=== PATIENT | female | born 1975 | race Caucasian/White ===

== ENCOUNTER 2016-06-02 21:53 | Emergency (ER) | payer OTHER ==
[~2016-06-02] VITALS: Ht 157.5 cm; Wt 65.8 kg
[~2016-06-02 21:53] MED LIST: FERR325E14 PO; PREN-385 PO
[2016-06-02 22:08] VITALS: BP 141/76
--- NOTE | 2016-06-02 23:15 | NUR ---
PT TAKEN TO BED 3
--- NOTE | 2016-06-02 23:26 | NUR ---
40Y/F PATIENT PRESENTS TO ED WITH C/O RT. BREAST PAIN . PT STATES SHE IS ON BREAST FEEDING, RT. BREAST STARTED SWELLING AND REDNESS 2 WKS AGO, NO FEVER . DENIES N/V/D; SKIN IS PINK/WARM/DRY, RT. BREAST SWELLING, TENDER, REDNESS; AAOX4 WITH EVEN AND STEADY GAIT; LUNGS CLEAR BL; HR EVEN AND REGULAR; PT DENIES ANY FEVER, CP, SOB, OR COUGH AT THIS TIME; PATIENT STATES PAIN OF 6/10 AT THIS TIME; VSS; PATIENT POSITIONED FOR COMFORT; HOB ELEVATED; BEDRAILS UP X2; BED DOWN. ER MD MADE AWARE OF PT STATUS.
[2016-06-03] LABS: BASOPHILS # (AUTO) 0.1 K/uL (0.00-0.22); BASOPHILS % (AUTO) 1.1 % (0.0-2.0); EOSINOPHILS # (AUTO) 0.4 K/uL (0-0.4); EOSINOPHILS % (AUTO) 3.8 % (0.0-4.0); HEMATOCRIT 36.9 % (36-48); LYMPHOCYTES # (AUTO) 2.6 K/uL (2.5-16.5); MEAN CORPUSCULAR HEMOGLOBIN 27 pg (27-31); MEAN CORPUSCULAR HGB CONC 33 g/dL (33-37); MEAN CORPUSCULAR VOLUME 83 fL (80-94); MONOCYTES % (AUTO) 9.4 % (1.7-9.3); NEUTROPHILS # (AUTO) 6.2 K/uL (1.8-7.7); NEUTROPHILS % (AUTO) 60.7 % (42.2-75.2); PLATELET COUNT (AUTO) 276 K/uL (140-450); RED BLOOD CELL COUNT(AUTO) 4.44 MIL/uL (4.20-5.40); RED CELL DISTRIBUTION WIDTH 12.2 % (11.6-13.7); WHITE BLOOD COUNT (AUTO) 10.3 K/uL (4.8-10.8)
[2016-06-03] MEDS ORDERED: ceFAZolin 1,000 MG VIAL ONE
[2016-06-03 00:13] LABS: APPEARANCE,URINE SL CLOUDY (CLEAR); BILIRUBIN,URINE NEGATIVE (NEGATIVE); BLOOD, URINE 3+ (NEGATIVE); COLOR,URINE YELLOW (YELLOW); LEUKOCYTE ESTERASE ,URINE NEGATIVE (NEGATIVE); NITRITE, URINE NEGATIVE (NEGATIVE); PH,URINE 6.5 (5.0-9.0); PROTEIN,URINE NEGATIVE (NEGATIVE); UGLUCOSE NEGATIVE (NEGATIVE); UROBILINOGEN,URINE 0.2 EU/dL (0.2 - 1)
[2016-06-03 00:16] LABS: ALBUMIN 3.8 g/dL (3.4-5.0); ANION GAP 14.6 (8-16); CALCIUM 9.1 mg/dL (8.5-10.1); CARBON DIOXIDE 27.4 mmol/L (21-32); CREATININE 0.6 mg/dL (0.6-1.3); TOTAL BILIRUBIN 0.2 mg/dL (0.0-1.0); TOTAL PROTEIN, SERUM 8.3 g/dL (6.4-8.2)
[2016-06-03 00:24] LABS: BACTERIA,URINE FEW /HPF (None Seen); URINE AMORPHOUS URATE 2+ /HPF (None Seen); WBC,URINE 0-5 (RARE) /HPF (0-5)
--- NOTE | 2016-06-03 01:29 | NUR ---
Dr. Olguin evaluating patient at bedside.
[2016-06-03] MEDS ORDERED: LIDOCAINE/EPI 1% 1:100000 20 ML VIAL INJ ONE ×2 (01:45)
--- NOTE | 2016-06-03 01:45 | NUR ---
DR. IRBY PERFORMS I AND D AT BEDSIDE
[2016-06-03] MEDS ORDERED: HYDROmorphone 1 MG/ML AMP ONE (02:04)
--- NOTE | 2016-06-03 02:04 | NUR ---
DILAUDID 1 MG IVP FOR SEVERE PAIN PER MD ORDER
[2016-06-03] MEDS ORDERED: HYDROmorphone 1 MG/ML AMP IVP ONE (02:05)
--- NOTE | 2016-06-03 03:05 | NUR ---
Patient discharged with v/s stable. Written and verbal after care instructions given and explained. Patient alert, oriented and verbalized understanding of instructions. Ambulatory with steady gait. All questions addressed prior to discharge. ID band removed. Patient advised to follow up with PMD. Rx of KEFLEX 500 MG, NAPROSYN 500 MG given. Patient educated on indication of medication including possible reaction and side effects. Opportunity to ask questions provided and answered. D/C BY DR. IRBY
[2016-06-03 03:06] VITALS: BP 135/80
== END 2016-06-03 03:05 | disposition home or self-care (01) ==
LOC: MED 21:53
DX: N61.1 Abscess of the breast and nipple (principal); R03.0 Elevated blood-pressure reading, without diagnosis of hypertension
CPT/HCPCS: 10060; 36415; 76641; 80053; 81001; 85025; 87040; 96365; 96375; 99285; J0690; J1170; J2001; Q0092

== ENCOUNTER 2016-06-05 11:32 | Emergency (ER) | payer MEDICAID, OTHER ==
[~2016-06-05] VITALS: Ht 154.9 cm; Wt 68.5 kg
[2016-06-05 11:39] VITALS: BP 120/71
[2016-06-05] MEDS ORDERED: CEPH250C16 PO (11:42)
[2016-06-05] MEDS ORDERED: NAPR500T1 PO (11:42)
--- NOTE | 2016-06-05 12:01 | NUR ---
Patient ambulated to bed 02.
--- NOTE | 2016-06-05 13:02 | NUR ---
PATIENT PRESENTS TO ED FOR F/U I&D X 2DAYS AGO . PT STATES DRESSING NEEDS TO BE CHANGED] . DENIES N/V/D; SKIN IS PINK/WARM/DRY; AAOX4 WITH EVEN AND STEADY GAIT; LUNGS CLEAR BL; HR EVEN AND REGULAR; PT DENIES ANY FEVER, CP, SOB, OR COUGH AT THIS TIME; PATIENT STATES PAIN OF 0/10 AT THIS TIME; VSS; PATIENT POSITIONED FOR COMFORT; HOB ELEVATED; BEDRAILS UP X2; BED DOWN. ER MD MADE AWARE OF PT STATUS.
--- NOTE | 2016-06-05 13:31 | NUR ---
Dr. Gallagher evaluating patient at bedside.
--- NOTE | 2016-06-05 13:42 | NUR ---
Dr. MOJICA REMOVED STRIP PACKING FROM I&D SITE AND REPACKED---DRESSING APPLIED OVER. PT TO C/U
[2016-06-05 14:02] VITALS: BP 118/78
--- NOTE | 2016-06-05 14:03 | NUR ---
Patient discharged with v/s stable. Written and verbal after care instructions given and explained. Patient verbalized understanding. Ambulatory with steady gait. All questions addressed prior to discharge. Advised to follow up with PMD IN 2 DAYS
== END 2016-06-05 14:03 | disposition home or self-care (01) ==
LOC: MED 11:36
DX: Z48.00 Encounter for change or removal of nonsurgical wound dressing (principal); O91.13 Abscess of breast associated with lactation
CPT/HCPCS: 99283

== ENCOUNTER 2018-08-20 18:55 | Emergency (ER) | payer OTHER ==
[~2018-08-20] VITALS: Ht 157.5 cm; Wt 63.0 kg
[~2018-08-20 18:55] MED LIST changes: +CEPH250C16 PO; -FERR325E14 PO; +NAPR-54 PO; -PREN-385 PO
[2018-08-20 19:00] VITALS: BP 137/79
--- NOTE | 2018-08-20 21:32 | NUR ---
PT TAKEN TO CHAIR Pietro
[2018-08-20] MEDS ORDERED: KETOROLAC 30 MG/ML VIAL IM ONE (21:50)
[2018-08-20 22:22] VITALS: BP 145/85
--- NOTE | 2018-08-20 22:22 | NUR ---
Patient discharged with v/s stable. Written and verbal after care instructions given and explained. Patient alert, oriented and verbalized understanding of instructions. Ambulatory with steady gait. All questions addressed prior to discharge. ID band removed. Patient advised to follow up with PMD. Rx of TYLENOL, IBUPROFEN given. Patient educated on indication of medication including possible reaction and side effects. Opportunity to ask questions provided and answered.
== END 2018-08-20 22:22 | disposition home or self-care (01) ==
LOC: MED 18:55
DX: S86.811A Strain of other muscle(s) and tendon(s) at lower leg level, right leg, initial encounter (principal); Z79.2 Long term (current) use of antibiotics; Z79.1 Long term (current) use of non-steroidal anti-inflammatories (NSAID); X50.0XXA Overexertion from strenuous movement or load, initial encounter; Y93.89 Activity, other specified; Y92.89 Other specified places as the place of occurrence of the external cause; Y99.8 Other external cause status
CPT/HCPCS: 96372; 99283; J1885

== ENCOUNTER 2020-06-20 08:52 | Emergency (ER) | payer OTHER ==
[~2020-06-20] VITALS: Ht 157.5 cm; Wt 65.4 kg
[2020-06-20 08:54] VITALS: BP 144/91
[2020-06-20 09:31] LABS: BASOPHILS % (AUTO) 0.4 % (0.0-2.0); EOSINOPHILS # (AUTO) 0.1 K/uL (0-0.4); EOSINOPHILS % (AUTO) 1.9 % (0.0-4.0); HEMATOCRIT 35.7 % (36-48); LYMPHOCYTES # (AUTO) 1.6 K/uL (2.5-16.5); LYMPHOCYTES % (AUTO) 25.2 % (20.5-51.1); MEAN CORPUSCULAR HEMOGLOBIN 28 pg (27-31); MEAN CORPUSCULAR HGB CONC 34 g/dL (33-37); MEAN CORPUSCULAR VOLUME 83.9 fL (80-94); MONOCYTES # (AUTO) 0.6 K/uL (0.8-1.0); MONOCYTES % (AUTO) 8.8 % (1.7-9.3); NEUTROPHILS # (AUTO) 4.1 K/uL (1.8-7.7); NEUTROPHILS % (AUTO) 63.7 % (42.2-75.2); PLATELET COUNT (AUTO) 202 K/uL (140-450); RED BLOOD CELL COUNT(AUTO) 4.26 MIL/uL (4.20-5.40); RED CELL DISTRIBUTION WIDTH 14.2 % (11.6-13.7); WHITE BLOOD COUNT (AUTO) 6.4 K/uL (4.8-10.8)
[2020-06-20 09:40] LABS: ANION GAP 13.3 (8-16); CARBON DIOXIDE 26.5 mmol/L (21-32); CREATININE 0.7 mg/dL (0.6-1.3); POTASSIUM 3.8 mmol/L (3.5-5.1)
[2020-06-20 09:41] LABS: PROTHROMBIN TIME 9.8 secs (10.8-13.4)
[2020-06-20 09:45] LABS: ALBUMIN 3.8 g/dL (3.4-5.0); BILIRUBIN,DIRECT 0.1 mg/dL (0.0-0.3); TOTAL BILIRUBIN 0.4 mg/dL (0.0-1.0)
[2020-06-20 15:18] VITALS: BP 144/91
== END 2020-06-20 15:19 | disposition home or self-care (01) ==
LOC: MED 08:52
DX: N83.201 Unspecified ovarian cyst, right side (principal); Z79.899 Other long term (current) drug therapy
CPT/HCPCS: 36415; 76830; 80048; 80076; 81002; 81025; 83690; 85025; 85610; 99285

== ENCOUNTER 2021-10-25 22:36 | Emergency (ER) | payer MEDICAID, OTHER ==
[~2021-10-25] VITALS: Ht 157.5 cm; Wt 62.1 kg
[2021-10-25 22:43] VITALS: BP 112/71
--- NOTE | 2021-10-26 00:56 | NUR ---
PT TAKEN TO BED 5
--- NOTE | 2021-10-26 01:02 | NUR ---
THROAT PAIN X 3 DAYS. PT STATES SORENESS. PT DENIES COUGH / FEVER / N/V/CHEST PAIN/ SOB PT STATES TENDER TO TOUCH. PT IS A/O X4 AMBULATORY. PT STATES LACK OF APPETITE. PMH:DENIES RX: CONTROL. \ PT HAD MRI LAST WEEKEND AND IT SHOWED HERNIA WITH SMALL OBSTRUCTION. PT AWAITING FOR SUGERY. LBM: YESTERDAY LMP: SEPTEMBER 28
--- NOTE | 2021-10-26 01:02 | NUR ---
ERMD ASSESSING PT
[2021-10-26 01:36] LABS: BASOPHILS % (AUTO) 0.3 % (0.0-2.0); EOSINOPHILS # (AUTO) 0.1 K/uL (0-0.4); EOSINOPHILS % (AUTO) 1.1 % (0.0-4.0); HEMATOCRIT 33.6 % (36-48); HEMOGLOBIN 11.1 g/dL (12.0-16.0); LYMPHOCYTES # (AUTO) 2.4 K/uL (2.5-16.5); LYMPHOCYTES % (AUTO) 29.8 % (20.5-51.1); MEAN CORPUSCULAR HEMOGLOBIN 27 pg (27-31); MEAN CORPUSCULAR HGB CONC 33 g/dL (33-37); MONOCYTES # (AUTO) 0.7 K/uL (0.8-1.0); MONOCYTES % (AUTO) 8.6 % (1.7-9.3); NEUTROPHILS # (AUTO) 4.8 K/uL (1.8-7.7); NEUTROPHILS % (AUTO) 60.2 % (42.2-75.2); PLATELET COUNT (AUTO) 244 K/uL (140-450); RED CELL DISTRIBUTION WIDTH 13.3 % (11.6-13.7); WHITE BLOOD COUNT (AUTO) 7.9 K/uL (4.8-10.8)
[2021-10-26 01:56] LABS: ANION GAP 13.7 (8-16); CREATININE 0.6 mg/dL (0.6-1.3); POTASSIUM 3.7 mmol/L (3.5-5.1)
[2021-10-26 01:58] LABS: FREE T4 (FREE THYROXINE) 0.93 ng/dL (0.76-1.46); THYROID STIMULATING HORMONE 2.26 uIU/mL (0.34-3.74)
[2021-10-26 03:22] VITALS: BP 110/74
--- NOTE | 2021-10-26 03:22 | NUR ---
Patient discharged with v/s stable. Written and verbal after care instructions given and explained. Patient verbalized understanding. Ambulatory with steady gait. All questions addressed prior to discharge. Advised to follow up with PMD.
== END 2021-10-26 03:22 | disposition home or self-care (01) ==
LOC: MED 22:36
DX: R22.1 Localized swelling, mass and lump, neck (principal)
CPT/HCPCS: 36415; 80048; 84439; 84443; 85025; 99285

== ENCOUNTER 2022-04-05 07:52 | Emergency (ER) | payer OTHER ==
[~2022-04-05] VITALS: Ht 157.5 cm; Wt 67.6 kg
[2022-04-05 08:01] VITALS: BP 134/73
--- NOTE | 2022-04-05 08:05 | NUR ---
46 y/o F BIB self from home c/o left arm pain s/p mechanical fall 3 weeks ago. Patient A&Ox4, ambulatory, states pain has been persistent since injury. Pt reports falling approximately 8 feet landing on L shoulder. Pain 7/10, stabbing/intermittent, radiating from L shoulder to L elbow. Worsens with movement/bending L arm. Denies medications prior to arrival. Pt denies LOC at time of incident; denies head/neck/back pain, headache, vision changes, dizziness. Pt states has not been seen for symptom. Bed locked in lowest position, side rails x 1. PMH/Sx/Meds: Denies NKDA
--- NOTE | 2022-04-05 08:05 | NUR ---
Note undone in EDM - 04/05/22 at 0811 by MEDNANDO 46 y/o F BIB self from home c/o left arm pain s/p mechanical fall 3 weeks ago. Patient A&Ox4, ambulatory, states pain has been persistent since injury. Pain 09/26, stabbing/intermittent, radiating from L shoulder to L elbow. Worsens with movement/bending L arm. Denies medications prior to arrival. Pt denies LOC at time of incident; denies headache, vision changes, dizziness. Pt states has not been seen for symptom. Bed locked in lowest position, side rails x 1. PMH/Sx/Meds: Denies NKDA
--- NOTE | 2022-04-05 08:10 | NUR ---
Dr. Yanez evaluating patient at bedside
[2022-04-05 10:01] VITALS: BP 119/70
--- NOTE | 2022-04-05 10:33 | NUR ---
Patient discharged with v/s stable. Written and verbal after care instructions given and explained for Acute Back Pain, Adult, Shoulder Pain. Patient verbalized understanding. Ambulatory with steady gait. All questions addressed prior to discharge. Advised to follow up with PMD. Copy of CT, XRAY results and off-work note given to patient.
== END 2022-04-05 10:33 | disposition home or self-care (01) ==
LOC: MED 07:52
DX: S49.92XA Unspecified injury of left shoulder and upper arm, initial encounter (principal); M65.812 Other synovitis and tenosynovitis, left shoulder; Z79.899 Other long term (current) drug therapy; W18.2XXA Fall in (into) shower or empty bathtub, initial encounter; Y93.89 Activity, other specified; Y92.89 Other specified places as the place of occurrence of the external cause; Y99.8 Other external cause status
CPT/HCPCS: 73010; 73030; 73200; 99284

== ENCOUNTER 2022-12-17 13:56 | Emergency (ER) | payer OTHER ==
[~2022-12-17] VITALS: Ht 157.5 cm; Wt 65.8 kg
[2022-12-17 14:46] VITALS: BP 146/75; PULSE 85; RESP 14; TEMP 98; O2SAT 99
[2022-12-17] MEDS ORDERED: KETOROLAC 30 MG/ML VIAL IM ONE (15:30)
[2022-12-17] MEDS ORDERED: LID5T TP (17:13)
[2022-12-17] MEDS ORDERED: NAPR-1704 PO (17:13)
[2022-12-17 17:46] VITALS: BP 146/75; PULSE 85; RESP 14; TEMP 98; O2SAT 99
== END 2022-12-17 17:46 | disposition home or self-care (01) ==
LOC: MED 13:56
DX: M54.50 Low back pain, unspecified (principal); E78.5 Hyperlipidemia, unspecified; Z79.899 Other long term (current) drug therapy; Z79.1 Long term (current) use of non-steroidal anti-inflammatories (NSAID); Z79.2 Long term (current) use of antibiotics
CPT/HCPCS: 72110; 81025; 96372; 99283; J1885